=== PATIENT | female | born 1990 | race Caucasian/White ===

== ENCOUNTER 2021-09-11 08:24 | Emergency (ER) | payer MEDICAID ==
[~2021-09-11] VITALS: Ht 162.6 cm; Wt 78.0 kg
[2021-09-11 09:53] LABS: COVID AG,FIA SOURCE NASAL SWAB
[2021-09-11] MEDS ORDERED: BENZ-70 PO (12:08)
[2021-09-11 12:26] VITALS: BP 127/89
== END 2021-09-11 12:31 | disposition home or self-care (01) ==
LOC: EMS 08:24
DX: J02.9 Acute pharyngitis, unspecified (principal); J40 Bronchitis, not specified as acute or chronic; Z20.822 Contact with and (suspected) exposure to COVID-19
CPT/HCPCS: 71045; 99284